=== PATIENT | female | born 1975 | race Caucasian/White ===

== ENCOUNTER 2020-05-29 09:49 | Emergency (ER) | payer OTHER ==
[~2020-05-29 09:49] MED LIST: DOXYCYCLINE HY100 MG PO; MACROBID 100 M100 MG PO; MACROBID100 MG PO; MUCINEX 600MG600 MG PO; PYRIDIUM100 MG PO; PYRIDIUM200 M1 PO
[2020-05-29 11:19] LABS: BASOPHIL 0.7 % (0-2); EOSINOPHIL 2.5 % (0-5); HCT 42.3 % (37.0-47.0); HGB 14.2 g/dl (12.5-16.0); LYMPHOCYTE 21.2 % (15-48); MCH 28.2 pg (25.0-31.0); MCHC 33.6 g/dL (32.0-36.0); MCV 83.9 fL (78.0-100.0); MPV 9.1 fL (6.0-9.5); NEUTROPHIL 70.2 % (41-80); NRBC 0; PLT 252 K/uL (150-400); RBC 5.04 M/uL (4.20-5.40); RDW 12.8 % (11.5-14.0); WBC 9.8 K/uL (4.0-10.5)
[2020-05-29 11:43] LABS: ALBUMIN 4.1 g/dL (3.4-5.0); BILIRUBIN - TOTAL 0.5 mg/dL (0.2-1.0); BUN/CREAT RATIO (CALC) 17.9 RATIO; CREATININE 0.67 mg/dL (0.51-0.95); GLOBULIN (CALCULATION) 3.8 g/dL; POTASSIUM 3.9 mmol/L (3.5-5.1); TOTAL PROTEIN 7.9 g/dL (6.4-8.2)
== END 2020-05-29 14:09 | disposition home or self-care (01) ==
LOC: FER 09:49
PROVIDERS: Emergency Medicine
DX: F41.1 Generalized anxiety disorder (principal); R29.700 NIHSS score 0; Z88.6 Allergy status to analgesic agent; Z88.5 Allergy status to narcotic agent; Z79.899 Other long term (current) drug therapy
CPT/HCPCS: 36415; 80053; 84443; 85025; 99284

== ENCOUNTER 2020-07-21 20:46 | Emergency (ER) | payer OTHER ==
[2020-07-21] MEDS ORDERED: IBUPROFEN800 MG PO (22:26)
[2020-07-21] MEDS ORDERED: NORCO 5-325 TA1 EACH PO (22:26)
== END 2020-07-21 22:50 | disposition home or self-care (01) ==
LOC: FER 20:46
DX: S92.512A Displaced fracture of proximal phalanx of left lesser toe(s), initial encounter for closed fracture (principal); F17.290 Nicotine dependence, other tobacco product, uncomplicated; Z88.6 Allergy status to analgesic agent; W19.XXXA Unspecified fall, initial encounter; Y92.410 Unspecified street and highway as the place of occurrence of the external cause
CPT/HCPCS: 73630; J1885

== ENCOUNTER 2020-11-06 07:54 | Emergency (ER) | payer OTHER ==
[~2020-11-06 07:54] MED LIST changes: +IBUPROFEN800 MG PO; +NORCO 5-325 TA1 EACH PO
[2020-11-06] MEDS ORDERED: PREDNISONE 20MG20 MG PO (09:09)
[2020-11-06] MEDS ORDERED: VENTOLIN HFA IN18 GM INH (09:09)
[2020-11-06] MEDS ORDERED: TESSALON PERLE100 M1 PO (09:09)
== END 2020-11-06 09:17 | disposition home or self-care (01) ==
LOC: FER 07:54
DX: U07.1 COVID-19 (principal); J98.01 Acute bronchospasm; I10 Essential (primary) hypertension; Z87.891 Personal history of nicotine dependence; Z88.6 Allergy status to analgesic agent
CPT/HCPCS: 71045

== ENCOUNTER 2021-06-06 11:38 | Emergency (ER) | payer OTHER ==
[~2021-06-06 11:38] MED LIST changes: +PREDNISONE 20MG20 MG PO; +TESSALON PERLE100 M1 PO; +VENTOLIN HFA IN18 GM INH
[2021-06-06 13:03] LABS: EOSINOPHIL 3.1 % (0-5); HCT 44.6 % (37.0-47.0); LYMPHOCYTE 20.3 % (15-48); MCH 27.7 pg (25.0-31.0); MCHC 33.6 g/dL (32.0-36.0); MCV 82.3 fL (78.0-100.0); MPV 9.3 fL (6.0-9.5); NEUTROPHIL 69.2 % (41-80); NRBC 0; PLT 302 K/uL (150-400); RBC 5.42 M/uL (4.20-5.40); RDW 12.8 % (11.5-14.0); WBC 11.5 K/uL (4.0-10.5)
[2021-06-06 13:14] LABS: INR 0.96 (0.9-1.2); PROTHROMBIN TIME 12.2 SECONDS (11.8-13.4)
[2021-06-06 13:28] LABS: ALBUMIN 4.8 g/dL (3.4-5.0); BILIRUBIN - TOTAL 0.6 mg/dL (0.2-1.0); BUN/CREAT RATIO (CALC) 19.4 RATIO; CREATININE 0.72 mg/dL (0.51-0.95); GLOBULIN (CALCULATION) 3.5 g/dL; POTASSIUM 4.2 mmol/L (3.5-5.1); TOTAL PROTEIN 8.3 g/dL (6.4-8.2)
== END 2021-06-06 18:31 | disposition home or self-care (01) ==
LOC: FER 11:38
PROVIDERS: Emergency Medicine
DX: K21.9 Gastro-esophageal reflux disease without esophagitis (principal); F41.9 Anxiety disorder, unspecified; I10 Essential (primary) hypertension; Z88.6 Allergy status to analgesic agent; Z91.040 Latex allergy status
CPT/HCPCS: 36415; 71045; 80053; 84484; 85025; 85610; 93005

== ENCOUNTER 2021-10-20 20:59 | Emergency (ER) | payer OTHER ==
[2021-10-20 21:56] LABS: BASOPHIL 0.9 % (0-2); EOSINOPHIL 5.7 % (0-5); HCT 39.6 % (37.0-47.0); HGB 13.8 g/dl (12.5-16.0); MCH 28.9 pg (25.0-31.0); MCHC 34.8 g/dL (32.0-36.0); MCV 82.8 fL (78.0-100.0); MONOCYTE 5.6 % (0-12); MPV 9.6 fL (6.0-9.5); NEUTROPHIL 52.5 % (41-80); NRBC 0; PLT 270 K/uL (150-400); RBC 4.78 M/uL (4.20-5.40); RDW 12.7 % (11.5-14.0); WBC 9.1 K/uL (4.0-10.5)
[2021-10-20 22:06] LABS: BUN/CREAT RATIO (CALC) 14.7 RATIO; CREATININE 0.68 mg/dL (0.51-0.95); POTASSIUM 3.5 mmol/L (3.5-5.1)
== END 2021-10-20 23:24 | disposition home or self-care (01) ==
LOC: FER 20:59
PROVIDERS: Nurse Practitioner Family
DX: G43.909 Migraine, unspecified, not intractable, without status migrainosus (principal); I10 Essential (primary) hypertension
CPT/HCPCS: 36415; 70450; 80048; 85025; 93005; J1100; J1200; J1885; J2405; J7030